=== PATIENT | female | born 1965 | race Caucasian/White ===

== ENCOUNTER 2016-08-13 22:21 | Emergency (ER) | payer MEDICARE ==
[2016-08-13] MEDS ORDERED: Cephalexin 250 MG CAP ONE (22:54)
[2016-08-13] MEDS ORDERED: Ondansetron ODT 4 MG TAB ONE (22:54)
== END 2016-08-13 22:56 | disposition home or self-care (01) ==
LOC: BURERS 22:21
DX: L03.115 Cellulitis of right lower limb (principal); G35 Multiple sclerosis; J45.909 Unspecified asthma, uncomplicated; F41.9 Anxiety disorder, unspecified; Z79.899 Other long term (current) drug therapy
CPT/HCPCS: 99283; Q0162

== ENCOUNTER 2016-08-17 00:11 | Emergency (ER) | payer MEDICARE ==
[2016-08-17 01:08] LABS: Hemoglobin 12.8 g/dL (12.0-16.0); Mean Corpuscular HGB CONC 32.1 g/dL (32.0-36.0); Mean Corpuscular Volume 90.4 fl (81.0-99.0); Mean Platelet Volume 7.7 fL (7.4-10.4); Platelet Count 330 thou/uL (130-400); RBC Distribution Width 15.1 % (11.5-14.5); Red Blood Cell (RBC) Count 4.42 mill/uL (4.20-5.40); White Blood Cell (WBC) Count 7.7 thou/uL (4.8-10.8)
[2016-08-17] MEDS ORDERED: Sulfameth/Trimethoprim DS 800-160mg TAB ONE (01:14)
[2016-08-17 01:29] LABS: Anisocytosis SLIGHT = 6-15 cells (100X) (0-5/hpf); Eosinophils 2 % (0-10); Lymphocytes 30 % (21-51); MDiff Complete? YES; Monocytes 5 % (0-10); Neutrophil 62 % (42-75); PLT Morphology Comment Appears Adequate
== END 2016-08-17 01:15 | disposition home or self-care (01) ==
LOC: BURERS 00:11
DX: L03.115 Cellulitis of right lower limb (principal); J45.909 Unspecified asthma, uncomplicated; G35 Multiple sclerosis; F41.9 Anxiety disorder, unspecified
CPT/HCPCS: 36415; 85025; 99283

== ENCOUNTER 2016-08-23 19:28 | Emergency (ER) | payer MEDICARE | END 2016-08-23 19:47 | disposition home or self-care (01) | LOC: BURERS 19:28 | DX: L03.115 Cellulitis of right lower limb (principal); G35 Multiple sclerosis; J45.909 Unspecified asthma, uncomplicated; F41.9 Anxiety disorder, unspecified; Z79.2 Long term (current) use of antibiotics | CPT/HCPCS: 99282 ==